=== PATIENT | male | born 1990 | race Caucasian/White ===

== ENCOUNTER 2016-12-18 01:52 | Emergency (ER) | payer BC ==
[2016-12-18] MEDS ORDERED: OLANZapine DISINTEGR 10 MG TAB ONE (01:59)
[2016-12-18] MEDS ORDERED: OLANZapine DISINTEGR 10 MG TAB PO ONE (02:01)
--- NOTE | 2016-12-18 02:03 | EDPHY ---
H & P HPI/ROS: Chief Complaint: Can't sleep, disorganized thoughts, bipolar disorder HPI: 26-year-old male with a history of bipolar disorder who is noncompliant with medications. He is currently living in the [facility] care home. He has not been sleeping. He is increasingly agitated. Patient was placed on a mental health hold by the care homehome specialist. Patient denies any recent illness. No chest pain shortness of breath. Denies being suicidal or homicidal. Denies visual or auditory hallucinations. Per care home staff he is increasingly manic, has flight of ideas and very tangential. He is gravely disabled at this time. My ROS PMH: Bipolar disorder Social History: Positive smoking, no alcohol, positive marijuana Family History: non-contributory Physical Exam: Gen: Awake, Alert, patient is over talkative, has a flight of ideas and tangential. HEENT: Nose: no rhinorrhea Eyes: PERRLA, EOMI Mouth: Moist mucosa Neck: Supple, no JVD Chest: nontender, lungs clear to auscultation Heart: S1, S2 normal, no murmur Abd: Soft, non-tender, no guarding Back: no CVA tenderness, no midline tenderness Ext: no edema, non-tender Skin: no rash Neuro: CN II-XII intact, Sensation grossly intact, Strength 5/5 in bilateral upper and lower extremities (Javy Lowery) Constitutional: Initial Vital Signs Heart Rate 108 H 12/18/16 02:17 Respiratory Rate 18 12/18/16 02:17 Blood Pressure 116/94 H 12/18/16 02:17 O2 Sat (%) 95 12/18/16 02:17 O2 Delivery Mode Room Air Allergies/Adverse Reactions: No Known Allergies Allergy (Unverified 12/18/16 02:17) Medical Decision Making ED Course/Re-evaluation: Patient is positive for methamphetamines. Will require 12 hours metabolize a reilly before mental health evaluation. He is resting comfortably after p.o. Zyprexa. 0700 patient signed out to Dr. Mandujano pending mental health evaluation. (Javy Lowery) 7:00 a.m.-I assumed care of this patient at shift change. He has a history of bipolar disorder and presents with acute chao. Urine toxicology screen positive for amphetamine, question of methamphetamine use. The patient is currently sleeping. I will reassess patient when he is awake. 9:45 a.m.-reassessment, calm and cooperative. He is prescribed Adderall and denies methamphetamine use. He denies suicidal or homicidal ideation. Mental health was contacted to assess patient now. 11:30 a.m.-this patient has been seen by mental health and cleared for outpatient treatment of bipolar disorder. I agree with this assessment. He is calm and cooperative and denies suicidal/homicidal ideation. (Ashley Mandujano) - Data Points Laboratory Results: Laboratory Results 12/18/16 02:13 12/18/16 02:13 12/18/16 12/18/16 12/18/16 02:15 02:13 02:13 WBC 7.82 10^3/uL 10^3/uL (3.80-9.50) RBC 5.02 10^6/uL 10^6/uL (4.40-6.38) Hgb 15.4 g/dL g/dL (13.7-17.5) Hct 43.3 % % (40.0-51.0) MCV 86.3 fL fL (81.5-99.8) MCH 30.7 pg pg (27.9-34.1) MCHC 35.6 g/dL g/dL (32.4-36.7) RDW 12.0 % % (11.5-15.2) Plt Count 257 10^3/uL 10^3/uL (150-400) MPV 11.1 fL fL (8.7-11.7) Neut % (Auto) 64.8 % % (39.3-74.2) Lymph % (Auto) 24.3 % % (15.0-45.0) [place] % (Auto) 8.8 % % (4.5-13.0) Eos % (Auto) 1.0 % % (0.6-7.6) Baso % (Auto) 0.8 % % (0.3-1.7) Nucleat RBC Rel Count 0.0 % % (0.0-0.2) Absolute Neuts (auto) 5.07 10^3/uL 10^3/uL (1.70-6.50) Absolute Lymphs (auto) 1.90 10^3/uL 10^3/uL (1.00-3.00) Absolute Monos (auto) 0.69 10^3/uL 10^3/uL (0.30-0.80) Absolute Eos (auto) 0.08 10^3/uL 10^3/uL (0.03-0.40) Absolute Basos (auto) 0.06 10^3/uL 10^3/uL (0.02-0.10) Absolute Nucleated RBC 0.00 10^3/uL 10^3/uL (0-0.01) Immature Gran % 0.3 % % (0.0-1.1) Immature Gran # 0.02 10^3/uL 10^3/uL (0.00-0.10) Sodium 139 mEq/L mEq/L (134-144) Potassium 3.6 mEq/L mEq/L (3.5-5.2) Chloride 101 mEq/L mEq/L (97-110) Carbon Dioxide 22 mEq/l mEq/l (22-31) Anion Gap 16 mEq/L mEq/L (8-16) BUN 11 mg/dL mg/dL (7-23) Creatinine 0.8 mg/dL mg/dL (0.7-1.3) Estimated GFR > 60 Glucose 112 mg/dL H mg/dL (70-100) Calcium 9.8 mg/dL mg/dL (8.5-10.4) Urine Opiates Screen NEGATIVE (NEGATIVE) Urine Barbiturates NEGATIVE (NEGATIVE) Ur Phencyclidine Scrn NEGATIVE (NEGATIVE) Ur Amphetamine Screen NON-NEGATIVE H (NEGATIVE) U Benzodiazepines Scrn NEGATIVE (NEGATIVE) Urine Cocaine Screen NEGATIVE (NEGATIVE) U Marijuana (THC) Screen NON-NEGATIVE H (NEGATIVE) Ethyl Alcohol < 10 mg/dL mg/dL (0-10) Medications Given: Discontinued Medications Olanzapine (Zyprexa Zydis) 10 mg PO EDNOW ONE Stop: 12/18/16 02:02 Last Admin: 12/18/16 02:02 Dose: 10 mg Departure - Departure Clinical Impression: Bipolar disorder Qualifiers: Active/Remission status: currently active Current bipolar episode type: manic Current episode severity: moderate Qualified Code(s): F31.12 - Bipolar disorder , current episode manic without psychotic features, moderate Condition: Good Instructions: Bipolar Disorder (ED) Additional Instructions: Follow-up with mental health as suggested. Referrals: Patient,NotPresent [Unknown] - As per Instructions
[2016-12-18 02:25] LABS: % IMMATURE GRANULYOCYTES 0.3 % (0.0-1.1); ABSOLUTE IMMATURE GRANULOCYTES 0.02 10^3/uL (0.00-0.10); ADD DIFF? NO; ADD MORPH? NO; ADD SCAN? NO; ATYPICAL LYMPHOCYTE FLAG 10 (0-99); FRAGMENT RBC FLAG 0 (0-99); HEMATOCRIT 43.3 % (40.0-51.0); HEMOGLOBIN 15.4 g/dL (13.7-17.5); LEFT SHIFT FLG 0 (0-99); LIPEMIA HEMOLYSIS FLAG 90 (0-99); MEAN CELL HEMOGLOBIN 30.7 pg (27.9-34.1); MEAN CELL HEMOGLOBIN CONCENTR. 35.6 g/dL (32.4-36.7); MEAN CELL VOLUME 86.3 fL (81.5-99.8); MEAN PLATELET VOLUME 11.1 fL (8.7-11.7); PLATELET CLUMPS FLAG 0 (0-99); PLATELET COUNT 257 10^3/uL (150-400); RED BLOOD CELL COUNT 5.02 10^6/uL (4.40-6.38)
[2016-12-18 02:47] LABS: ANION GAP 16 mEq/L (8-16); CALCIUM 9.8 mg/dL (8.5-10.4); CARBON DIOXIDE 22 mEq/l (22-31); CHLORIDE 101 mEq/L (97-110); CREATININE 0.8 mg/dL (0.7-1.3); ETHANOL SERUM < 10 mg/dL (0-10); GLOMERULAR FILTRATION RATE > 60; GLUCOSE 112 mg/dL (70-100); POTASSIUM 3.6 mEq/L (3.5-5.2); SODIUM 139 mEq/L (134-144)
[2016-12-18 09:51] VITALS: RESP 16; TEMP 97.9
[2016-12-18 11:48] VITALS: BP 110/65; PULSE 92; O2SAT 98
== END 2016-12-18 11:46 | disposition home or self-care (01) ==
LOC: EDUNIT#
DX: F31.12 Bipolar disorder, current episode manic without psychotic features, moderate (principal)
CPT/HCPCS: 80305; G0480